=== PATIENT | male | born 1950 | race Caucasian/White ===

== ENCOUNTER 2017-11-19 12:36 | Emergency (ER) | payer MEDICARE, OTHER ==
[2017-11-19 13:30] LABS: CHLORIDE,CL 104 mmol/L (101-111); SODIUM,NA 136 mmol/L (135-145)
[2017-11-19] MEDS ORDERED: Iopamidol 755 Mg/ML 100 ML Bottle IVPUSH ONE (14:26)
--- NOTE | 2017-11-19 14:34 | EDM.PDOC ---
ED HPI GENERAL MEDICAL PROBLEM - General Chief Complaint: Chest Pain Stated Complaint: CHEST PAINS Time Seen by Provider: 11/19/17 14:15 Source of Information: Reports: Patient History Limitations: Reports: No Limitations - History of Present Illness INITIAL COMMENTS - FREE TEXT/NARRATIVE: This 67 yo male patient was brought to the ED with right lateral chest pain. The patient reports his symptoms started on Saturday and got worse today. The patient has a history of blood clots with similar symptoms. Onset Date: 11/17/17 Duration: Constant Location: Reports: Chest (right side of chest) Quality: Reports: Ache, Dull Severity: Moderate Worsens with: Reports: None Associated Symptoms: Reports: No Other Symptoms Right Middle Chest Pain Score (Numeric/FACES): 2 Past Medical History Cardiovascular History: Reports: Afib Respiratory History: Reports: PE - Past Surgical History Cardiovascular Surgical History: Reports: None Social & Family History - Tobacco Use Smoking Status *Q: Never Smoker ED ROS GENERAL - Review of Systems Review Of Systems: ROS reveals no pertinent complaints other than HPI. ED EXAM, GENERAL - Physical Exam Exam: See Below Exam Limited By: No Limitations General Appearance: Alert, WD/WN, Moderate Distress Eye Exam: Bilateral Eye: EOMI, Normal Inspection, Periorbital Changes Ears: Normal External Exam, Normal Canal, Hearing Grossly Normal, Normal TMs Nose: Normal Inspection, Normal Mucosa, No Blood Throat/Mouth: Normal Inspection, Normal Lips, Normal Teeth, Normal Gums, Normal Oropharynx, Normal Voice, No Airway Compromise Head: Atraumatic, Normocephalic Neck: Normal Inspection, Supple, Non-Tender, Full Range of Motion Respiratory/Chest: No Respiratory Distress, Lungs Clear, Normal Breath Sounds, No Accessory Muscle Use, Other (right lateral chest pain) Cardiovascular: Normal Peripheral Pulses, Regular Rate, Rhythm, No Edema, No Gallop, No JVD, No Murmur, No Rub GI/Abdominal: Normal Bowel Sounds, Soft, Non-Tender, No Organomegaly, No Distention, No Abnormal Bruit, No Mass (Male) Exam: Deferred Rectal (Males) Exam: Deferred Back Exam: Normal Inspection, Full Range of Motion, NT Extremities: Normal Inspection, Normal Range of Motion, Non-Tender, Normal Capillary Refill, No Pedal Edema Neurological: Alert, Oriented, CN II-XII Intact, Normal Cognition, Normal Gait, Normal Reflexes, No Motor/Sensory Deficits Psychiatric: Normal Affect, Normal Mood Skin Exam: Warm, Dry, Intact, Normal Color, No Rash Lymphatic: No Adenopathy Course - Vital Signs Last Recorded V/S: Last Vital Signs Temp 37.0 C 11/19/17 13:45 Pulse 111 H 11/19/17 13:45 Resp 19 11/19/17 12:51 BP 138/84 11/19/17 13:45 Pulse Ox 94 L 11/19/17 12:51 - Orders/Labs/Meds Orders: Active Orders 24 hr Category Date Time Status EKG Documentation Completion [RC] URGENT Care 11/19/17 13:09 Active Labs: Laboratory Tests 11/19/17 11/19/17 11/19/17 Range/Units 12:53 12:53 12:53 WBC 7.7 (5.0-10.0) 10^3/uL RBC 5.10 (4.6-6.2) 10^6/uL Hgb 15.0 (14.0-18.0) g/dL Hct 45.0 (40.0-54.0) % MCV 88.2 (80-100) fL MCH 29.4 (27.0-34.0) pg MCHC 33.3 (33.0-35.0) g/dL Plt Count 169 (150-450) 10^3/uL Neut % (Auto) 74.3 (42.2-75.2) % Lymph % (Auto) 15.7 L (20.5-50.1) % [place] % (Auto) 9.3 H (2-8) % Eos % (Auto) 0.6 L (1.0-3.0) % Baso % (Auto) 0.1 (0.0-1.0) % PT 9.9 (9.0-12.0) SEC INR 1.0 (0.9-1.2) D-Dimer, Quantitative 1650 H (0-400) ng/mL Sodium 136 (135-145) mmol/L Potassium 3.3 L (3.6-5.0) mmol/L Chloride 104 (101-111) mmol/L Carbon Dioxide 25.0 (21.0-31.0) mmol/L Anion Gap 10.3 BUN 11 (7-18) mg/dL Creatinine 0.9 (0.6-1.3) mg/dL Est Cr Clr Drug Dosing 90.01 mL/min Estimated GFR (MDRD) > 60 BUN/Creatinine Ratio 12.22 Glucose 126 H (74-105) mg/dL Calcium 8.8 (8.4-10.2) mg/dl Total Bilirubin 1.1 H (0.2-1.0) mg/dL AST 32 (10-42) IU/L ALT 31 (10-60) IU/L Alkaline Phosphatase 71 (42-121) IU/L Troponin I < 0.02 (0.00-0.02) ng/ml Total Protein 7.4 (6.7-8.2) g/dl Albumin 3.8 (3.2-5.5) g/dl Globulin 3.6 Albumin/Globulin Ratio 1.06 Meds: Medications Discontinued Medications Generic Name Dose Route Start Last Admin Trade Name Freq PRN Reason Stop Dose Admin Iopamidol 100 ml 11/19/17 14:26 11/19/17 14:57 Isovue-370 (76%) IVPUSH 11/19/17 14:27 72 ml ONETIME ONE Administration Departure - Departure Time of Disposition: 16:08 Disposition: Home, Self-Care 01 Condition: Fair Clinical Impression: Right-sided chest wall pain Instructions: Chest Wall Pain, [id number] Forms: ED Department Discharge Care Plan Goals: The patient was advised of the examination, lab, EKG and CT results during the visit. The patient was encouraged to continue to take [id number] medications as directed for temporary symptom relief. If the patient has any additional symptoms or concerns, the patient should follow-up with her primary care facility or return to the emergency department. - My Orders Last 24 Hours: My Active Orders 11/19/17 13:09 EKG Documentation Completion [RC] URGENT - Assessment/Plan Last 24 Hours: My Active Orders 11/19/17 13:09 EKG Documentation Completion [RC] URGENT
--- NOTE | 2017-11-22 12:43 | EKG ---
11/19/2017 - NURIS RAM W - FINDINGS: This 12-lead EKG shows a normal sinus rhythm with a ventricular rate of 87. Normal axis and intervals. No acute ST-segment or T-wave changes. [facility] /[id number]
== END 2017-11-19 16:13 | disposition home or self-care (01) ==
LOC: DL.ED 12:36
DX: R07.89 Other chest pain (principal)
CPT/HCPCS: 36415; 71045; 71260; 80053; 84484; 85025; 85379; 85610; 93005; 93010; 99285; Q9967; 99284

== ENCOUNTER 2019-12-03 13:26 | Emergency (ER) | payer MEDICARE, OTHER ==
[~2019-12-03 13:26] MED LIST: Sodium Chloride 0.9% 1,000 ML IV ONE
--- NOTE | 2019-12-03 13:27 | EDM.PDOC ---
ED HPI GENERAL MEDICAL PROBLEM - General Chief Complaint: Abdominal Pain Stated Complaint: AMB Time Seen by Provider: 12/03/19 01:15 Source of Information: Reports: Patient History Limitations: Reports: No Limitations - History of Present Illness INITIAL COMMENTS - FREE TEXT/NARRATIVE: This 69 yo male patient was brought to the ED due to right lower quadrant abdominal pain. The patient reports he had noticed the pain for about 45 minutes prior to calling the ambulance. The patient reports he does have a history of bilateral hernia surgeries (right has been repaired 3 times). The patient reports his pain was initially a 7-9/10, but now is a 2/10. The patient reports he was working in the yard yesterday and may have gotten a little dehydrated. The patient reports he has not had large bowel movements for 2 days (yesterday he reports a half bowel movement and today he had a "couple of rabbit turds.) Onset: Today Duration: Minutes:, Improving Location: Reports: Abdomen (RLQ) Quality: Reports: Ache Severity: Moderate Improves with: Reports: None Worsens with: Reports: None Context: Reports: Other Associated Symptoms: Reports: No Other Symptoms Right Lower Abdominal Pain Score (Numeric/FACES): 2 - Related Data Allergies Allergy/AdvReac Type Severity Reaction Status Date / Time No Known Allergies Allergy Verified 12/03/19 13:35 Home Meds: Home Meds Aspirin [Tess Chewable] 81 mg PO DAILY 12/03/19 [History] Multivitamin 1 tab PO ASDIRECTED 12/03/19 [History] Past Medical History Cardiovascular History: Reports: Afib Respiratory History: Reports: PE - Past Surgical History Cardiovascular Surgical History: Reports: None ED ROS GENERAL - Review of Systems Review Of Systems: Comprehensive ROS is negative, except as noted in HPI. ED EXAM, GI/ABD - Physical Exam Exam: See Below Exam Limited By: No Limitations General Appearance: Alert, WD/WN, Mild Distress, Thin Eyes: Bilateral: Normal Appearance, EOMI Ears: Normal External Exam, Normal Canal, Hearing Grossly Normal, Normal TMs Nose: Normal Inspection, Normal Mucosa, No Blood Throat/Mouth: Normal Inspection, Normal Lips, Normal Teeth, Normal Gums, Normal Oropharynx, Normal Voice, No Airway Compromise Head: Atraumatic, Normocephalic Neck: Normal Inspection Respiratory/Chest: No Respiratory Distress, Lungs Clear, Normal Breath Sounds, No Accessory Muscle Use, Chest Non-Tender Cardiovascular: Normal Peripheral Pulses, Regular Rate, Rhythm, No Edema, No Gallop, No JVD, No Murmur, No Rub GI/Abdominal Exam: Normal Bowel Sounds, No Organomegaly, No Distention, No Abnormal Bruit, No Mass, Pelvis Stable, Tender (mild RLQ tenderness to palpation) (Male) Exam: Deferred Rectal (Males) Exam: Deferred Back Exam: Normal Inspection, Full Range of Motion, NT Extremities: Normal Inspection, Normal Range of Motion, Non-Tender, Normal Capillary Refill, No Pedal Edema Neurological: Alert, Oriented, CN II-XII Intact, Normal Cognition, Normal Gait, Normal Reflexes, No Motor/Sensory Deficits Psychiatric: Normal Affect, Normal Mood Skin Exam: Warm, Dry, Intact, Normal Color, No Rash Lymphatic: No Adenopathy Course - Vital Signs Last Recorded V/S: Last Vital Signs Temp 35.9 C L 12/03/19 13:20 Pulse 70 12/03/19 13:20 Resp 18 12/03/19 13:20 BP 150/77 H 12/03/19 13:20 Pulse Ox 96 12/03/19 13:20 - Orders/Labs/Meds Labs: Laboratory Tests 12/03/19 12/03/19 12/03/19 Range/Units 13:21 13:40 13:40 WBC 10.8 H (5.0-10.0) 10^3/uL RBC 5.27 (4.6-6.2) 10^6/uL Hgb 15.6 (14.0-18.0) g/dL Hct 46.1 (40.0-54.0) % MCV 87.5 (80-100) fL MCH 29.6 (27.0-34.0) pg MCHC 33.8 (33.0-35.0) g/dL Plt Count 163 (150-450) 10^3/uL Neut % (Auto) 86.8 H (42.2-75.2) % Lymph % (Auto) 7.3 L (20.5-50.1) % [place] % (Auto) 5.5 (2-8) % Eos % (Auto) 0.3 L (1.0-3.0) % Baso % (Auto) 0.1 (0.0-1.0) % Sodium 140 (136-145) mmol/L Potassium 3.5 (3.5-5.1) mmol/L Chloride 104 (98-107) mmol/L Carbon Dioxide 27 (21-32) mmol/L Anion Gap 12.5 (7-13) mEq/L BUN 16 (7-18) mg/dL Creatinine 1.29 (0.70-1.30) mg/dL Est Cr Clr Drug Dosing 61.08 mL/min Estimated GFR (MDRD) 55 BUN/Creatinine Ratio 12.4 (No establ ref range) Glucose 96 (74-99) mg/dL Calcium 8.5 (8.5-10.1) mg/dL Total Bilirubin 0.8 (0.2-1.0) mg/dL AST 19 (15-37) U/L ALT 27 (16-63) U/L Alkaline Phosphatase 77 (46-116) U/L Total Protein 7.1 (6.4-8.2) g/dL Albumin 3.6 (3.4-5.0) g/dL Globulin 3.5 Albumin/Globulin Ratio 1.0 Urine Color [place] (YELLOW) Urine Appearance Clear (CLEAR) Urine pH 6.5 (5.0-9.0) Ur Specific [place] 1.020 (1.005-1.030) Urine Protein 100 H (NEGATIVE) Urine Glucose (UA) Negative (NEGATIVE) Urine Ketones Negative (NEGATIVE) Urine Occult Blood Large H (NEGATIVE) Urine Nitrite Negative (NEGATIVE) Urine Bilirubin Negative (NEGATIVE) Urine Urobilinogen 1.0 (0.2-1.0) mg/dL Ur Leukocyte Esterase Negative (NEGATIVE) Urine RBC >100 H /HPF Urine WBC 0-5 (0-5/HPF) /HPF Ur Epithelial Cells Rare (NOT SEEN) /HPF Amorphous Sediment Rare (NOT SEEN) /HPF Urine Bacteria Rare (0-FEW/HPF) /HPF Urine Mucus Rare (NOT SEEN) /LPF Meds: Medications Discontinued Medications Generic Name Dose Route Start Last Admin Trade Name Freq PRN Reason Stop Dose Admin Sodium Chloride 1,000 mls @ 999 mls/hr 12/03/19 13:21 12/03/19 13:40 Normal Saline IV 12/03/19 14:21 999 mls/hr .BOLUS ONE Administration Iopamidol 100 ml 12/03/19 14:28 12/03/19 15:21 Isovue-300 (61%) IVPUSH 12/03/19 14:29 75 ml ONETIME ONE Administration Ketorolac Tromethamine 30 mg 12/03/19 15:54 Toradol IVPUSH 12/03/19 15:55 ONETIME ONE Tamsulosin HCl 0.4 mg 12/03/19 15:55 Flomax PO 12/03/19 15:56 ONETIME ONE Departure - Departure Time of Disposition: 15:58 Disposition: Home, Self-Care 01 Condition: Fair Clinical Impression: Kidney stone on right side - Discharge Information *PRESCRIPTION DRUG MONITORING PROGRAM REVIEWED*: Not Applicable *COPY OF PRESCRIPTION DRUG MONITORING REPORT IN PATIENT DANIELLE: Not Applicable Instructions: Kidney Stones, Fplm-de-Laun Forms: ED Department Discharge Care Plan Goals: The patient was advised of the examination, lab and CT results during the visit. The patient was given IV fluids, IV Toradol and an oral dose of Flomax while in the ED. The patient was discharged with a script for Toradol (10 mg) #20 to take 1 by mouth every 6 hours and Flomax (0.4 mg) #7 to take 1 by mouth daily. The patient was encouraged to increase his oral fluid intake over the next week. If the patient has any additional symptoms or concerns, the patient should either return to the emergency department or visit his primary care facility. Sepsis Event Note (ED) - Focused Exam Vital Signs: Vital Signs Temp Pulse Resp BP Pulse Ox 12/03/19 13:20 35.9 C L 70 18 150/77 H 96
[2019-12-03 14:05] LABS: ANION GAP 12.5 mEq/L (7-13)
[2019-12-03] MEDS ORDERED: Iopamidol 612 MG/ML 100 ML Bottle IVPUSH ONE (14:28)
[2019-12-03] MEDS ORDERED: Ketorolac 30 MG/ML SDV IVPUSH ONE (15:54)
[2019-12-03] MEDS ORDERED: Tamsulosin 0.4 MG Cap.ER PO ONE (15:55)
--- NOTE | 2019-12-03 15:57 | CT ---
EXAMINATION: Abdomen Pelvis w Cont SEX: Male AGE: 69 years CLINICAL HISTORY: 69-year-old 195 pound male complaining of RIGHT LOWER ABDOMINAL PAIN. 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 Scan technique: Volume acquisition of data from the abdomen and pelvis obtained without oral contrast but during/after intravenous infusion 75 cc nonionic Isovue contrast at 3 cc/s via injector while patient was lying supine on the Siemens multislice scanner [place], [place]. All data archived in the PACS system for storage, reformatting axial/sagittal/coronal planes and study. Interpretation: Abnormal. 1. Asymmetric posterior segment LLL L atelectasis and/or bronchiectasis. No pericardial or pleural effusions. 2. Gallbladder, liver, stomach, spleen, pancreas and adrenal glands unremarkable. 3.*Solitary 6.0 x 7.5 mm oval CALCULUS "lodged" in the distal right ureter with associated signs of proximal dilatation i.e. ipsilateral ureterectasis and mild pyelectasis. 4. Adjacent 3.0 and 3.8 cm oval low attenuation (water density) mid and lower pole CYSTS, right kidney. 5. No cystic/solid cortical mass lesion, nephrolithiasis or signs of obstructive uropathy on the left. 6. Arteriovascular calcifications aortoiliac vessels. Isolated tiny phlebolith pelvis on the left. Prostate calcifications. 7. No pelvic or abdominal mass lesion, mesenteric or retroperitoneal lymphadenopathy, inflammatory "dirty" peritoneal fat, signs of mechanical bowel obstruction, ascites or free intraperitoneal air. Sigmoid diverticula without associated inflammation. 8. Gallbladder, liver, stomach, spleen, pancreas and adrenal glands unremarkable. Chronic L5-S1 disc disease. CONCLUSION: Distal right URETEROLITH.
== END 2019-12-03 16:25 | disposition home or self-care (01) ==
LOC: DL.ED 13:26
DX: N20.0 Calculus of kidney (principal); I48.91 Unspecified atrial fibrillation; Z79.82 Long term (current) use of aspirin
CPT/HCPCS: 36415; 74177; 80053; 81001; 85025; 96361; 96374; 99284; A9270; J1885; J7030; Q9967